=== PATIENT | female | born 1985 | race Caucasian/White ===

== ENCOUNTER 2017-09-19 18:16 | Observation (INO) | payer OTHER ==
[2017-09-19 19:20] LABS: ADD MAN DIFF? NO
[2017-09-19 19:23] LABS: BASOPHILS % 0.2 % (0.0-2.0); EOSINOPHILS # 0.2 10^3/ul (0.0-0.5); EOSINOPHILS % 1.5 % (0.0-7.0); HEMATOCRIT 30.9 % (37.0-47.0); HEMOGLOBIN 10.5 g/dl (12.0-16.0); LYMPHOCYTES # 1.5 10^3/ul (0.8-2.9); LYMPHOCYTES % 13.3 % (15.0-51.0); MEAN CORPUSCULAR HEMOGLOBIN 32.2 pg (29.0-33.0); MEAN CORPUSCULAR VOLUME 94.8 fl (82.0-101.0); MEAN PLATELET VOLUME 9.2 fl (7.4-10.4); MONOCYTE # 0.3 10^3/ul (0.3-0.9); MONOCYTES % 2.5 % (0.0-11.0); NEUTROPHIL # 9.2 10^3/ul (1.6-7.5); NEUTROPHILS % 82.1 % (39.0-77.0); PLATELET COUNT 232 10^3/UL (140-415); RED BLOOD COUNT 3.26 10^6/ul (4.20-5.40); RED CELL DISTRIBUTION WIDTH 12.6 % (11.5-14.5)
[2017-09-19 19:23] LABS: WHITE BLOOD COUNT 11.2 10^3/ul (4.8-10.8)
[2017-09-19 19:42] LABS: ANION GAP 22 (8-16); BLOOD UREA NITROGEN 95 mg/dl (7-20); CARBON DIOXIDE 21 mmol/L (21-31); CHLORIDE 100 mmol/L (97-110); GLUCOSE 88 mg/dl (70-220); MAGNESIUM 1.9 mg/dl (1.7-2.5); PHOSPHORUS 7.7 mg/dl (2.5-4.9); SODIUM 138 mmol/L (135-144)
[2017-09-19 19:47] LABS: PROTIME 13.3 Sec (11.9-14.9)
[2017-09-19 19:48] LABS: ETHANOL < 10.0 mg/dl; PARTIAL THROMBOPLASTIN TIME 31.1 Sec (25.0-35.0)
[2017-09-19 19:49] LABS: POTASSIUM 5.1 mmol/L (3.5-5.1)
[2017-09-19 19:55] LABS: TROPONIN-I < 0.012 ng/ml (0.000-0.120)
[2017-09-19] MEDS: NITROGLYCERIN 2% 1 GM OINT PKT TD (21:39)
[2017-09-19 22:00] LABS: AMPHETAMINE/METHAMPHETAMINE Negative (NEGATIVE); BARBITURATES Negative (NEGATIVE); BENZODIAZEPINES Negative (NEGATIVE); CANNABINOIDS Negative (NEGATIVE); COCAINE Negative (NEGATIVE); OPIATES Negative (NEGATIVE)
[2017-09-20] MEDS ORDERED: morphine LIQ (10 MG/5 ML) CUP PO (00:30)
[2017-09-20] MEDS: ONDANSETRON 4 MG INJ IV (01:10)
[2017-09-20 01:27] LABS: CREATINE KINASE 66 IU/L (23-200)
[2017-09-20 01:39] LABS: CK INDEX 0.7; CK-MB 0.47 ng/ml (0.0-2.4)
[2017-09-20 01:43] LABS: TROPONIN-I < 0.012 ng/ml (0.000-0.120)
[2017-09-20] MEDS: ACETAMINOPHEN 500 MG TAB PO (04:50)
[2017-09-20 05:39] LABS: WHITE BLOOD COUNT 10.8 10^3/ul (4.8-10.8)
[2017-09-20 05:39] LABS: ADD MAN DIFF? NO; BASOPHILS % 0.3 % (0.0-2.0); EOSINOPHILS # 0.1 10^3/ul (0.0-0.5); HEMATOCRIT 29.1 % (37.0-47.0); HEMOGLOBIN 9.9 g/dl (12.0-16.0); LYMPHOCYTES # 2.5 10^3/ul (0.8-2.9); LYMPHOCYTES % 23.5 % (15.0-51.0); MEAN CORPUSCULAR HEMOGLOBIN 31.5 pg (29.0-33.0); MEAN CORPUSCULAR VOLUME 92.7 fl (82.0-101.0); MEAN PLATELET VOLUME 9.6 fl (7.4-10.4); MONOCYTE # 0.3 10^3/ul (0.3-0.9); NEUTROPHIL # 7.8 10^3/ul (1.6-7.5); NEUTROPHILS % 71.8 % (39.0-77.0); PLATELET COUNT 221 10^3/UL (140-415); RED BLOOD COUNT 3.14 10^6/ul (4.20-5.40); RED CELL DISTRIBUTION WIDTH 12.6 % (11.5-14.5)
[2017-09-20 06:08] LABS: ALBUMIN 3.7 g/dl (3.3-4.9); ANION GAP 24 (8-16); BLOOD UREA NITROGEN 105 mg/dl (7-20); CALCIUM 9.9 mg/dl (8.4-10.2); CARBON DIOXIDE 22 mmol/L (21-31); CHLORIDE 98 mmol/L (97-110); CHOL/HDL RATIO 2.2 RATIO; CHOLESTEROL 87 mg/dl (100-200); GLUCOSE 71 mg/dl (70-220); HDL CHOLESTEROL 39 mg/dl (34-82); LDL CHOLESTEROL,CALCULATED 31 mg/dl; PHOSPHORUS 9.1 mg/dl (2.5-4.9); POTASSIUM 5.1 mmol/L (3.5-5.1); SODIUM 139 mmol/L (135-144); TRIGLYCERIDES 86 mg/dl (0-149)
[2017-09-20 06:09] LABS: CREATINE KINASE 57 IU/L (23-200)
[2017-09-20 06:16] LABS: CREATININE 14.37 mg/dl (0.44-1.00)
[2017-09-20 06:19] LABS: CK INDEX 0.9; TROPONIN-I < 0.012 ng/ml (0.000-0.120)
[2017-09-20] MEDS: CALCIUM ACETATE 667 MG CAP PO ×3 (08:14→18:20)
[2017-09-20] MEDS: FERROUS SULFATE (EC) 325 MG TAB PO (08:14)
[2017-09-20] MEDS: MULTIVIT/CA CARB/B CMPLX/FA TAB PO (08:15)
[2017-09-20] MEDS: CALCITRIOL 0.25 MCG CAP PO (08:15)
[2017-09-20] MEDS: predniSONE 5 MG TAB PO (08:15)
[2017-09-20] MEDS: METOPROLOL 50 MG TAB PO (08:17)
[2017-09-20] MEDS: LOSARTAN 25 MG TAB PO ×2 (09:00→21:41)
[2017-09-20] MEDS: FOLIC ACID 0.4 MG TAB PO (11:36)
[2017-09-20] MEDS: TACROLIMUS 1 MG CAP PO ×2 (11:36→20:42)
[2017-09-20] MEDS: APIXABAN 5 MG TABLET PO (11:36)
[2017-09-20 12:36] LABS: TROPONIN-I < 0.012 ng/ml (0.000-0.120)
[2017-09-20 12:49] LABS: HEPATITIS B SURFACE ANTIGEN NEGATIVE (NEGATIVE)
[2017-09-20] MEDS: ALPRAZOLAM 0.25 MG TAB PO (14:33)
[2017-09-20 14:45] LABS: HEPATITIS B SURFACE ANTIBODY POSITIVE (NEGATIVE)
[2017-09-20] MEDS: ATORVASTATIN 40 MG TAB PO (20:42)
[2017-09-21 06:52] LABS: MAGNESIUM 1.9 mg/dl (1.7-2.5)
[2017-09-21 06:52] LABS: PHOSPHORUS 9.3 mg/dl (2.5-4.9)
[2017-09-21 06:53] LABS: ANION GAP 20 (8-16); BLOOD UREA NITROGEN 63 mg/dl (7-20); CALCIUM 9.3 mg/dl (8.4-10.2); CARBON DIOXIDE 30 mmol/L (21-31); CHLORIDE 96 mmol/L (97-110); CREATININE 9.33 mg/dl (0.44-1.00); GLUCOSE 77 mg/dl (70-220); POTASSIUM 4.7 mmol/L (3.5-5.1); SODIUM 141 mmol/L (135-144)
[2017-09-21] MEDS: LOSARTAN 25 MG TAB PO (09:00)
[2017-09-21] MEDS: METOPROLOL 50 MG TAB PO (09:00)
[2017-09-21] MEDS: MULTIVIT/CA CARB/B CMPLX/FA TAB PO (09:00)
[2017-09-21] MEDS: APIXABAN 5 MG TABLET PO (09:10)
[2017-09-21] MEDS: CALCIUM ACETATE 667 MG CAP PO (09:12)
[2017-09-21] MEDS: FERROUS SULFATE (EC) 325 MG TAB PO (09:12)
[2017-09-21] MEDS: TACROLIMUS 1 MG CAP PO (09:12)
[2017-09-21] MEDS: CALCITRIOL 0.25 MCG CAP PO (09:13)
[2017-09-21] MEDS: FOLIC ACID 0.4 MG TAB PO (09:14)
[2017-09-21] MEDS: predniSONE 5 MG TAB PO (09:15)
== END 2017-09-21 13:03 | disposition home or self-care (01) ==
LOC: E/R 18:16 → MS3 20:42
DX: R07.89 Other chest pain (principal); I12.0 Hypertensive chronic kidney disease with stage 5 chronic kidney disease or end stage renal disease; N18.6 End stage renal disease; Z99.2 Dependence on renal dialysis; E78.5 Hyperlipidemia, unspecified; D64.9 Anemia, unspecified; Z88.0 Allergy status to penicillin; Z88.8 Allergy status to other drugs, medicaments and biological substances; Z91.018 Allergy to other foods; Z91.048 Other nonmedicinal substance allergy status; Z79.01 Long term (current) use of anticoagulants; F17.200 Nicotine dependence, unspecified, uncomplicated
CPT/HCPCS: 71045; 80048; 80061; 80069; 80307; 82550; 82553; 83735; 84100; 84484; 85025; 85610; 85730; 86706; 87340; 90935; 93005; 93306; 99285-25

== ENCOUNTER 2018-01-07 20:01 | Emergency (ER) | payer OTHER ==
[2018-01-07 21:46] LABS: ADD MAN DIFF? NO
[2018-01-07 21:47] LABS: BASOPHILS % 0.2 % (0.0-2.0); EOSINOPHILS # 0.1 10^3/ul (0.0-0.5); EOSINOPHILS % 1.3 % (0.0-7.0); HEMATOCRIT 31.1 % (37.0-47.0); HEMOGLOBIN 10.3 g/dl (12.0-16.0); LYMPHOCYTES % 19.6 % (15.0-51.0); MEAN CORPUSCULAR HGB CONC 33.1 g/dl (32.0-37.0); MEAN CORPUSCULAR VOLUME 93.7 fl (82.0-101.0); MEAN PLATELET VOLUME 9.4 fl (7.4-10.4); MONOCYTE # 0.4 10^3/ul (0.3-0.9); MONOCYTES % 4.1 % (0.0-11.0); NEUTROPHIL # 7.4 10^3/ul (1.6-7.5); NEUTROPHILS % 74.3 % (39.0-77.0); PLATELET COUNT 215 10^3/UL (140-415); RED BLOOD COUNT 3.32 10^6/ul (4.20-5.40); RED CELL DISTRIBUTION WIDTH 12.8 % (11.5-14.5)
[2018-01-07 21:54] LABS: ANION GAP 15 (8-16); BLOOD UREA NITROGEN 41 mg/dl (7-20); CARBON DIOXIDE 32 mmol/L (21-31); CHLORIDE 98 mmol/L (97-110); CREATININE 7.12 mg/dl (0.44-1.00); GLUCOSE 87 mg/dl (70-220); POTASSIUM 4.8 mmol/L (3.5-5.1); SODIUM 140 mmol/L (135-144)
== END 2018-01-07 23:26 | disposition home or self-care (01) ==
LOC: E/R 20:01
DX: R10.84 Generalized abdominal pain (principal); R20.2 Paresthesia of skin; R19.7 Diarrhea, unspecified; N18.6 End stage renal disease; Z99.2 Dependence on renal dialysis
CPT/HCPCS: 80048; 85025; 93005; 99284-25

== ENCOUNTER 2018-03-04 08:22 | Emergency (ER) | payer OTHER ==
[2018-03-04 08:46] LABS: ADD MAN DIFF? NO
[2018-03-04 08:49] LABS: WHITE BLOOD COUNT 12.2 10^3/ul (4.8-10.8)
[2018-03-04 08:49] LABS: BASOPHILS % 0.2 % (0.0-2.0); EOSINOPHILS # 0.1 10^3/ul (0.0-0.5); EOSINOPHILS % 0.7 % (0.0-7.0); HEMATOCRIT 35.7 % (37.0-47.0); HEMOGLOBIN 12.3 g/dl (12.0-16.0); LYMPHOCYTES # 3.5 10^3/ul (0.8-2.9); LYMPHOCYTES % 28.9 % (15.0-51.0); MEAN CORPUSCULAR HEMOGLOBIN 32.6 pg (29.0-33.0); MEAN CORPUSCULAR HGB CONC 34.5 g/dl (32.0-37.0); MEAN CORPUSCULAR VOLUME 94.7 fl (82.0-101.0); MEAN PLATELET VOLUME 8.8 fl (7.4-10.4); MONOCYTE # 0.4 10^3/ul (0.3-0.9); MONOCYTES % 3.3 % (0.0-11.0); NEUTROPHIL # 8.1 10^3/ul (1.6-7.5); NEUTROPHILS % 66.2 % (39.0-77.0); NUCLEATED RED BLOOD CELLS% 0.2 /100WBC (0.0-0.0); PLATELET COUNT 253 10^3/UL (140-415); RED BLOOD COUNT 3.77 10^6/ul (4.20-5.40); RED CELL DISTRIBUTION WIDTH 14.6 % (11.5-14.5)
[2018-03-04 09:11] LABS: ANION GAP 13 (5-13); BLOOD UREA NITROGEN 34 mg/dl (7-20); CALCIUM 9.8 mg/dl (8.4-10.2); CARBON DIOXIDE 32 mmol/L (21-31); CHLORIDE 95 mmol/L (97-110); CREATININE 5.48 mg/dl (0.44-1.00); Estimated GFR 9 mL/min (>60); GLUCOSE 104 mg/dl (70-220); POTASSIUM 3.3 mmol/L (3.5-5.1); SODIUM 140 mmol/L (135-144)
[2018-03-04 09:22] LABS: TROPONIN-I < 0.012 ng/ml (0.000-0.120)
== END 2018-03-04 09:33 | disposition home or self-care (01) ==
LOC: E/R 08:22
DX: N04.1 Nephrotic syndrome with focal and segmental glomerular lesions (principal); N18.9 Chronic kidney disease, unspecified; Z94.0 Kidney transplant status
CPT/HCPCS: 36415; 71045; 80048; 84484; 85025; 93005; 99285-25